=== PATIENT | female | born 1990 | race Caucasian/White ===

== ENCOUNTER 2017-02-10 09:53 | Emergency (ER) | payer SELFPAY ==
[2017-02-10 10:47] LABS: Hematocrit 35.3 % (30.3-42.9); Hemoglobin 11.5 gm/dl (10.1-14.3); Mean Corpuscular HGB Conc 33 % (30-34); Mean Corpuscular Hemoglobin 27 pg (28-32); Mean Corpuscular Volume 83 fl (79-97); Platelet Count 338 K/mm3 (140-440); Red Blood Count 4.27 M/mm3 (3.65-5.03); Red Cell Distribution Width 13.8 % (13.2-15.2); White Blood Count 5.4 K/mm3 (4.5-11.0)
[2017-02-10 11:15] LABS: Alanine Aminotransferase 8 units/L (7-56); Albumin 4.5 g/dL (3.9-5); Albumin/Globulin Ratio 1.4 %; Alkaline Phosphatase 67 units/L (35-129); Blood Urea Nitrogen 10 mg/dL (7-17); Calcium 9.7 mg/dL (8.4-10.2); Carbon Dioxide 21 mmol/L (22-30); Glucose 143 mg/dL (65-100); Lipase 15 units/L (13-60); Total Protein 7.8 g/dL (6.3-8.2)
[2017-02-10 11:16] LABS: Anion Gap 21 mmol/L; Chloride 101.2 mmol/L (98-107); Potassium 3.8 mmol/L (3.6-5.0); Sodium 139 mmol/L (137-145)
[2017-02-10 11:26] LABS: Blastocytes % (Manual) 0 %
[2017-02-10 11:32] LABS: Diff Status Complete; Platelet Estimate Consistent w Auto
[2017-02-10 17:06] VITALS: BP 118/69
[2017-02-10 17:25] LABS: Bilirubin,Urine NEG (Negative); Blood,Urine NEG (Negative); Ketones,Urine 80 mg/dL (Negative); Leukocyte Esterase,Urine NEG (Negative); Mucus,Urine 1+ /HPF; Nitrite,Urine NEG (Negative); Urobilinogen,Urine < 2.0 mg/dL (<2.0)
--- NOTE | 2017-02-10 17:33 | Emergency Department Report ---
ED Abdominal Pain HPI - General Chief Complaint: Abdominal Pain Stated Complaint: ABD PAIN/NAUSEA/VOMITING Time Seen by Provider: 02/10/17 17:30 Source: patient Mode of arrival: Ambulatory Limitations: No Limitations - History of Present Illness Initial Comments: Patient states that she has been having intermittent nocturnal abdominal pain for at least 3 months. She has never seen a physician for this. 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 She was recently found to have a positive skin test and INH treatment is anticipated. She had a negative chest x-ray she tells me. Last year she had a negative HIV test. She has not repeated this subsequently. At this time she has no abdominal pain. She states that she has made dietary modifications although she has not historically been lactose intolerant. She states that she stopped ingesting milk products and that seemed to help. She didn't mention anything about gluten. She has no history of any known chronic GI problem. He is not in any acute pain at this time. She states the pain is usually periumbilical to epigastric. She states that she used to take Goody powders quite frequently but now has discontinued that as well. -: month(s) Location: periumbilical Radiation: none Migration to: no migration Severity: moderate Quality: aching Consistency: now resolved Improves With: nothing Worsens With: nothing Associated Symptoms: denies other symptoms - Related Data Previous Rx's Medication Instructions Recorded Last Taken Type Lansoprazole [Prevacid] 15 mg PO BID #60 cap 02/10/17 Unknown Rx traMADol [Ultram] 50 mg PO Q6HR PRN #10 tablet 02/10/17 Unknown Rx Allergies Allergy/AdvReac Type Severity Reaction Status Date / Time No Known Allergies Allergy Unverified 02/10/17 09:55 ED Review of Systems ROS: Stated complaint: ABD PAIN/NAUSEA/VOMITING Other details as noted in HPI Constitutional: denies: chills, fever Eyes: denies: eye pain, eye discharge, vision change ENT: denies: ear pain, throat pain Respiratory: denies: cough, shortness of breath, wheezing Cardiovascular: denies: chest pain, palpitations Endocrine: no symptoms reported Gastrointestinal: as per HPI, abdominal pain. denies: nausea, vomiting, diarrhea (not recently ) Genitourinary: denies: urgency, dysuria, discharge Musculoskeletal: denies: back pain, joint swelling, arthralgia Skin: denies: rash, lesions Neurological: denies: headache, weakness, paresthesias Psychiatric: denies: anxiety, depression Hematological/Lymphatic: denies: easy bleeding, easy bruising ED Past Medical Hx - Past Medical History Previous Medical History?: No - Surgical History Past Surgical History?: No Additional Surgical History: - Social History Smoking Status: Never Smoker Substance Use Type: None - Medications Home Medications: Home Medications Medication Instructions Recorded Confirmed Last Taken Type Lansoprazole [Prevacid] 15 mg PO BID #60 cap 02/10/17 Unknown Rx traMADol [Ultram] 50 mg PO Q6HR PRN #10 tablet 02/10/17 Unknown Rx ED Physical Exam - General Limitations: No Limitations General appearance: alert, in no apparent distress - Head Head exam: Present: atraumatic, normocephalic - Eye Eye exam: Present: normal appearance. Absent: scleral icterus - ENT ENT exam: Present: normal exam, mucous membranes moist - Neck Neck exam: Present: normal inspection. Absent: tenderness, meningismus - Respiratory Respiratory exam: Present: normal lung sounds bilaterally. Absent: respiratory distress - Cardiovascular Cardiovascular Exam: Present: regular rate, normal rhythm. Absent: systolic murmur, diastolic murmur, rubs, gallop - GI/Abdominal GI/Abdominal exam: Present: soft, normal bowel sounds. Absent: distended, tenderness, guarding, rebound, rigid - Extremities Exam Extremities exam: Present: normal inspection - Back Exam Back exam: Present: normal inspection - Neurological Exam Neurological exam: Present: alert, oriented X3, CN II-XII intact. Absent: motor sensory deficit - Psychiatric Psychiatric exam: Present: normal affect, normal mood, other (a bit hyperverbal) - Skin Skin exam: Present: warm, dry, intact, normal color. Absent: rash ED Course Vital Signs 02/10/17 02/10/17 09:57 17:05 Temperature 97.6 F 98.0 F Pulse Rate 83 81 Respiratory 22 20 Rate Blood Pressure 121/74 Blood Pressure 118/69 [Right] O2 Sat by Pulse 100 100 Oximetry ED Medical Decision Making - Lab Data Result diagrams: 02/10/17 10:37 02/10/17 10:37 Laboratory Results - last 24 hr 02/10/17 02/10/17 02/10/17 10:37 10:37 17:09 WBC 5.4 RBC 4.27 Hgb 11.5 Hct 35.3 MCV 83 MCH 27 L MCHC 33 RDW 13.8 Plt Count 338 Add Manual Diff Complete Total Counted 100 Seg Neutrophils % Parts Salvager Band Neutrophils % 0 Lymphocytes % (Manual) 2.0 L Reactive Lymphs % (Man) 0 Monocytes % (Manual) 1.0 Metamyelocytes % 0 Myelocytes % 0 Promyelocytes % 0 Blast Cells % 0 Nucleated RBC % Not Reportable Seg Neutrophils # Man 5.2 Band Neutrophils # 0.0 Lymphocytes # (Manual) 0.1 L Abs React Lymphs (Man) 0.0 Monocytes # (Manual) 0.1 Eosinophils # (Manual) 0.0 Basophils # (Manual) 0.0 Metamyelocytes # 0.0 Myelocytes # 0.0 Promyelocytes # 0.0 Blast Cells # 0.0 WBC Morphology Not Reportable Hypersegmented Neuts Not Reportable Hyposegmented Neuts Not Reportable Hypogranular Neuts Not Reportable Smudge Cells Not Reportable Toxic Granulation Not Reportable Toxic Vacuolation Not Reportable Dohle Bodies Not Reportable Pelger-Huet Anomaly Not Reportable Lawrence Rods Not Reportable Platelet Estimate Consistent w auto Clumped Platelets Not Reportable Plt Clumps, EDTA Not Reportable Large Platelets Not Reportable Giant Platelets Not Reportable Platelet Satelliting Not Reportable Plt Morphology Comment Not Reportable RBC Morphology Not Reportable Dimorphic RBCs Not Reportable Polychromasia Not Reportable Hypochromasia Not Reportable Poikilocytosis Not Reportable Anisocytosis Not Reportable Microcytosis Not Reportable Macrocytosis Not Reportable Spherocytes Not Reportable Pappenheimer Bodies Not Reportable Sickle Cells Not Reportable Target Cells Not Reportable Tear Drop Cells Not Reportable Ovalocytes Not Reportable Helmet Cells Not Reportable [place] Bodies Not Reportable [place] Rings Not Reportable Lyle Cells Not Reportable Bite Cells Not Reportable Crenated Cell Not Reportable Elliptocytes Not Reportable Acanthocytes (Spur) Not Reportable Rouleaux Not Reportable Hemoglobin C Crystals Not Reportable Schistocytes Not Reportable Malaria parasites Not Reportable Rafi Bodies Not Reportable Hem Pathologist Commnt No Sodium 139 Potassium 3.8 Chloride 101.2 Carbon Dioxide 21 L Anion Gap 21 BUN 10 Creatinine 0.5 L Estimated GFR > 60 BUN/Creatinine Ratio 20.00 Glucose 143 H Calcium 9.7 Total Bilirubin 0.30 AST 13 ALT 8 Alkaline Phosphatase 67 Total Protein 7.8 Albumin 4.5 Albumin/Globulin Ratio 1.4 Lipase 15 Urine Color Yellow Urine Turbidity Clear Urine pH 7.0 Ur Specific [place] 1.025 Urine Protein 30 mg/dl Urine Glucose (UA) Neg Urine Ketones 80 Urine Blood Neg Urine Nitrite Neg Urine Bilirubin Neg Urine Urobilinogen < 2.0 Ur Leukocyte Esterase Neg Urine WBC (Auto) 3.0 Urine RBC (Auto) 3.0 U Epithel Cells (Auto) 3.0 Urine Mucus 1+ Urine HCG, Qual Negative - Medical Decision Making The patient is noted to be a bit lymphopenic. She'll be given a copy of her laboratory tests. She'll be referred to the [facility] for further diagnostic evaluation of this as well as follow-up. I will place her on lansoprazole. I've advised her to avoid gastric irritants. I will give her prescription of Ultram for when necessary use. Critical care attestation.: If time is entered above; I have spent that time in minutes in the direct care of this critically ill patient, excluding procedure time. ED Disposition Clinical Impression: Lymphopenia Abdominal pain Qualifiers: Abdominal location: upper abdomen, unspecified Qualified Code(s): R10.10 - Upper abdominal pain, unspecified Gastritis Qualifiers: Gastritis type: unspecified gastritis Chronicity: chronic Gastritis bleeding: without bleeding Qualified Code(s): K29.50 - Unspecified chronic gastritis without bleeding Gastritis Qualifiers: Gastritis type: unspecified gastritis Chronicity: chronic Gastritis bleeding: without bleeding Qualified Code(s): K29.50 - Unspecified chronic gastritis without bleeding Disposition: DISCHARGED TO HOME OR SELFCARE Is pt being admited?: No Does the pt Need Aspirin: No Condition: Stable Instructions: Abdominal Pain (ED), Gastritis (ED) Additional Instructions: Avoid stomach irritation such as aspirin and Goody powder or other nonsteroidal medication as well as alcohol. Rx as directed. Follow-up on your blood work is recommended. I've given you a copy. I've given you information concerning the [facility]. Return any acute change or problem. Prescriptions: Lansoprazole [Prevacid] 15 mg PO BID #60 cap traMADol [Ultram] 50 mg PO Q6HR PRN #10 tablet PRN Reason: Pain Referrals: PRIMARY CARE, [Primary Care Provider] - 3-5 Days [facility] [Provider Group] - 3-5 Days Time of Disposition: 18:06
== END 2017-02-10 18:17 | disposition home or self-care (01) ==
LOC: ED 09:53
DX: K29.50 Unspecified chronic gastritis without bleeding (principal); R10.33 Periumbilical pain; D72.810 Lymphocytopenia
CPT/HCPCS: 36415; 80053; 81001; 81025; 83690; 85007; 85025; 99283

== ENCOUNTER 2017-09-13 03:10 | Emergency (ER) | payer MEDICAID ==
[2017-09-13 04:03] LABS: Basophils % (Auto) 0.4 % (0.0-1.8); Eosinophils % (Auto) 0.6 % (0.0-4.3); Hemoglobin 11.2 gm/dl (10.1-14.3); Mean Corpuscular HGB Conc 33 % (30-34); Mean Corpuscular Hemoglobin 28 pg (28-32); Mean Corpuscular Volume 84 fl (79-97); Platelet Count 304 K/mm3 (140-440); Red Blood Count 4.04 M/mm3 (3.65-5.03); Red Cell Distribution Width 13.5 % (13.2-15.2); White Blood Count 5.7 K/mm3 (4.5-11.0)
[2017-09-13 04:20] LABS: Alanine Aminotransferase 58 units/L (7-56); Albumin/Globulin Ratio 1.3 %; Alkaline Phosphatase 58 units/L (35-129); Anion Gap 21 mmol/L; BUN/Creatinine Ratio 14; Blood Urea Nitrogen 7 mg/dL (7-17); Calcium 9.2 mg/dL (8.4-10.2); Carbon Dioxide 18 mmol/L (22-30); Chloride 99.9 mmol/L (98-107); Glucose 128 mg/dL (65-100); Lipase 41 units/L (13-60); Potassium 3.1 mmol/L (3.6-5.0); Sodium 136 mmol/L (137-145); Total Protein 7.2 g/dL (6.3-8.2)
[2017-09-13 04:21] LABS: INR 0.9 (0.87-1.13)
[2017-09-13 04:22] LABS: Partial Thromboplastin Time 27.9 Sec. (24.2-36.6)
[2017-09-13] MEDS ORDERED: ZOFRAN IV ONE (05:05)
[2017-09-13] MEDS ORDERED: NACL 0.9% 1000 ML 1,000 ML IV ONE ×3 (05:05→14:51)
[2017-09-13] MEDS ORDERED: DILAUDID IV ONE ×2 (05:05→14:51)
[2017-09-13] MEDS ORDERED: PROTONIX IV ONE (05:05)
--- NOTE | 2017-09-13 05:11 | Emergency Department Report ---
Blank Doc - Documentation Documentation: Pt screened. Labs reviewed. Patient's epigastric pain and complains of vomiting blood and blood in her stool that started after receiving an . Positive vaginal bleeding reported as well. Patient has significant right upper quadrant, epigastric, and left upper quadrant tenderness. Minimal suprapubic tenderness Labs reviewed: h/h stable, mild lft elevation, elevated hcg noted. mild hypokalemia (npo for now) Meds ordered include: Dilaudid, Zofran, Protonix, and normal saline Imaging studies ordered: abd us/transvag/pelvic US UA collection pending
--- NOTE | 2017-09-13 07:16 | Ultrasound Report ---
FINAL REPORT EXAM: US ABDOMEN COMPLETE HISTORY: epigstric pain, vomiting blood COMPARISONS: None FINDINGS: Grayscale and color Doppler ultrasound evaluation of the abdomen The liver is poorly visualized secondary to overlying bowel gas. No suggested hepatomegaly or intrahepatic biliary ductal dilatation. The common duct measures approximately 6 millimeters in caliber. The gallbladder is distended and contains at least 2 echogenic shadowing stones, the largest of which is in the neck and measures up to 1.8 cm in greatest dimension. Gallbladder wall measures up to 3-4 millimeters in thickness. No definite pericholecystic edema. The pancreas is not well seen secondary to overlying bowel gas. The spleen is sonographically unremarkable and measures up to 9.1 cm in greatest dimension. No abdominal ascites or free fluid in Gates's pouch. The right kidney measures up to 10.2 cm and the left kidney measures up to 10.9 cm cm in length. A hypoechoic partially shadowing focus is present in the region of the left renal pelvis measuring up to 1 cm. Twinkle artifact may be associated with this finding. No right-sided hydronephrosis. A right upper pole collecting system echogenic shadowing focus measures up to 9 millimeters. Imaged portions of the abdominal aorta and inferior vena cava are grossly unremarkable. IMPRESSION: Examination is compromised by overlying bowel gas. Cholelithiasis measuring up to 1.8 cm at the neck of the gallbladder with mild gallbladder wall is suggestive of cholecystitis. Left renal pelvis 1 centimeter stone and 9 millimeter right upper collecting system stone are suggested. No definite hydronephrosis. Consider CT follow-up.
--- NOTE | 2017-09-13 07:46 | Ultrasound Report ---
FINAL REPORT EXAM: US OB < = 14 WEEKS FETUS HISTORY: epigstric pain, vomiting blood, s/p yeste COMPARISONS: None. FINDINGS: Transabdominal grayscale and color Doppler ultrasound evaluation of the pelvis Anteverted uterus measures 10.7 x 7 x 7.9 cm. Heterogeneous endometrium is focally thickened at the fundus measuring up to 19 millimeters. There is fluid within the endometrium, as well as internal flow on color Doppler. No findings of intrauterine are detected. The ovaries are sonographically unremarkable and measure 3.3 x 2 x 2.3 cm on the right and 2.6 x 1.7 x 2.8 cm on the left. The ovaries are best demonstrated on transvaginal ultrasound. IMPRESSION: Heterogeneously thickened endometrium with internal flow on color Doppler may be due to inflammatory or infectious endometritis, given recent procedural history. There are no findings of intrauterine identified. Close interval clinical and sonographic follow-up are suggested.
--- NOTE | 2017-09-13 07:48 | Ultrasound Report ---
FINAL REPORT EXAM: US OB TRANSVAGINAL HISTORY: epigstric pain, vomiting blood, s/p yeste COMPARISONS: None. FINDINGS: Transvaginal grayscale and color Doppler ultrasound evaluation of the pelvis Anteverted uterus measures 10.7 x 7 x 7.9 cm. Heterogeneous endometrium is focally thickened at the fundus measuring up to 19 millimeters. There is fluid within the endometrium, as well as internal flow on color Doppler. No findings of intrauterine are detected. The ovaries are sonographically unremarkable and measure 3.3 x 2 x 2.3 cm on the right and 2.6 x 1.7 x 2.8 IMPRESSION: Heterogeneously thickened endometrium with internal flow on color Doppler may be due to inflammatory or infectious endometritis, given recent procedural history. There are no findings of intrauterine identified. Close interval clinical and sonographic follow-up are suggested.
[2017-09-13] MEDS: KCL 10MEQ/100ML 10 MEQ/100 ML BAG IV SCH ×2 (08:00→11:03)
[2017-09-13] MEDS ORDERED: MORPHINE IV ONE (08:43)
[2017-09-13 09:40] LABS: Bacteria,Urine 1+ /HPF (Negative); Bilirubin,Urine NEG (Negative); Blood,Urine LG (Negative); Ketones,Urine 80 mg/dL (Negative); Leukocyte Esterase,Urine SM (Negative); Mucus,Urine FEW /HPF; Nitrite,Urine NEG (Negative); Protein,Urine <15 mg/dL mg/dL (Negative); Urobilinogen,Urine < 2.0 mg/dL (<2.0)
--- NOTE | 2017-09-13 12:11 | Cat Scan Report ---
CT ABDOMEN PELVIS WITH CONTRAST: HISTORY: Abdominal pain. COMPARISON: none. TECHNIQUE: Helical CT in 1.25mm intervals following IV contrast. Sagittal and coronal reconstructions. FINDINGS: Lung bases: Normal. Liver: Normal. Biliary system: Normal. Pancreas: Normal. Spleen: Normal. Kidneys/ureters/bladder: Normal. Adrenal glands: Normal. Aorta: Normal. Intestines: Normal. Appendix: Not confidently identified, correlate with surgical history. Pelvic viscera: Normal. Ascites: None. Adenopathy: None. Musculoskeletal: Normal. IMPRESSION: Unremarkable CT scan of the abdomen and pelvis with contrast.
[2017-09-13 12:48] VITALS: BP 129/74
--- NOTE | 2017-09-13 13:29 | Emergency Department Report ---
ED Abdominal Pain HPI - General Chief Complaint: Abdominal Pain Stated Complaint: ABD PAIN Time Seen by Provider: 09/13/17 07:01 Source: patient, EMS Mode of arrival: Stretcher Limitations: No Limitations - History of Present Illness Initial Comments: 27 YO FEMALE S/P ELECTIVE YESTERDAY HER WITH ABDOMINAL PAIN. THIS MORNING AT 0130 SHE BEGAN VOMITING AND HAVING SEVERE EPIGASTRIC ABDOMINAL PAIN. HER VAGINAL BLEEDING WAS HEAVY BUT IS IS NOW SLOWED TO A TRICKLE. HER WAS PERFORMED AT THE [facility] . SHE WAS 10 WEEKS . SHE IS A A2. SHE IS UNABLE TO STOP VOMITING AND BELLY ANNA IS 10/10 MD Complaint: abdominal pain -: Sudden, This morning (EARLY 0130) Location: epigastric, suprapubic Migration to: no migration Severity scale (0 -10): 10 Quality: sharp ( IN EPIGASTRIC AND CRAMPY,ACHING SUPRAPUBIC) Improves With: nothing Worsens With: movement Context: recent surgery/procedure (ELECTIVE ) - Related Data LMP (females 10-50): other (8WEEKS AGO) Home Medications Medication Instructions Recorded Confirmed Last Taken No Known Home Medications [No 09/13/17 09/13/17 Unknown Reported Home Medications] Allergies Allergy/AdvReac Type Severity Reaction Status Date / Time NSAIDS (Non-Steroidal Allergy Vomiting Verified 09/13/17 03:36 Anti-Inflamma ED Review of Systems ROS: Stated complaint: ABD PAIN Other details as noted in HPI Constitutional: denies: chills, fever Eyes: denies: eye pain, eye discharge, vision change ENT: denies: ear pain, throat pain Respiratory: denies: cough, shortness of breath, wheezing Cardiovascular: denies: chest pain, palpitations Endocrine: no symptoms reported Gastrointestinal: nausea, vomiting. denies: diarrhea Genitourinary: denies: urgency, dysuria, discharge Musculoskeletal: denies: back pain, joint swelling, arthralgia Skin: denies: rash, lesions Neurological: denies: headache, weakness, paresthesias Psychiatric: denies: anxiety, depression Hematological/Lymphatic: denies: easy bleeding, easy bruising ED Past Medical Hx - Past Medical History Additional medical history: gastritis - Surgical History Past Surgical History?: Yes Additional Surgical History: x2 (2015, 09/12/17) - Social History Smoking Status: Never Smoker Substance Use Type: Marijuana - Medications Home Medications: Home Medications Medication Instructions Recorded Confirmed Last Taken Type No Known Home Medications [No 09/13/17 09/13/17 Unknown History Reported Home Medications] ED Physical Exam - General Limitations: No Limitations General appearance: alert, in distress - Head Head exam: Present: atraumatic - Eye Eye exam: Present: normal appearance - ENT ENT exam: Present: mucous membranes moist - Neck Neck exam: Present: normal inspection - Respiratory Respiratory exam: Present: normal lung sounds bilaterally. Absent: respiratory distress - Cardiovascular Cardiovascular Exam: Present: regular rate, normal rhythm. Absent: systolic murmur, diastolic murmur, rubs, gallop - GI/Abdominal GI/Abdominal exam: Present: soft, tenderness (EPIGASTRIUM), guarding, normal bowel sounds. Absent: rebound - Rectal Rectal exam: Present: deferred - Extremities Exam Extremities exam: Present: normal inspection - Back Exam Back exam: Present: normal inspection - Neurological Exam Neurological exam: Present: alert, oriented X3 - Psychiatric Psychiatric exam: Present: normal affect, normal mood - Skin Skin exam: Present: warm, dry, intact, normal color. Absent: rash ED Course Vital Signs 09/13/17 09/13/17 09/13/17 03:26 03:27 03:29 Temperature 97.5 F L Pulse Rate 81 78 Respiratory 18 20 16 Rate Blood Pressure 116/78 116/78 Blood Pressure [Left] O2 Sat by Pulse 100 100 100 Oximetry 09/13/17 09/13/17 09/13/17 03:30 03:31 03:33 Temperature Pulse Rate 77 78 Respiratory 12 12 23 Rate Blood Pressure 121/78 121/78 121/78 Blood Pressure [Left] O2 Sat by Pulse 100 100 Oximetry 09/13/17 09/13/17 09/13/17 03:35 03:37 03:38 Temperature Pulse Rate 80 75 Respiratory 25 H 24 24 Rate Blood Pressure 121/78 121/78 Blood Pressure [Left] O2 Sat by Pulse 100 100 100 Oximetry 09/13/17 09/13/17 09/13/17 03:39 03:41 03:43 Temperature Pulse Rate 76 73 73 Respiratory 18 20 12 Rate Blood Pressure 121/78 121/78 121/78 Blood Pressure [Left] O2 Sat by Pulse 100 100 100 Oximetry 09/13/17 09/13/17 09/13/17 03:45 03:47 03:49 Temperature Pulse Rate 77 73 81 Respiratory 14 14 17 Rate Blood Pressure 121/78 121/78 121/78 Blood Pressure [Left] O2 Sat by Pulse 100 100 99 Oximetry 09/13/17 09/13/17 09/13/17 03:51 03:53 03:55 Temperature Pulse Rate 74 82 83 Respiratory 23 18 14 Rate Blood Pressure 121/78 121/78 121/78 Blood Pressure [Left] O2 Sat by Pulse 100 100 98 Oximetry 09/13/17 09/13/17 09/13/17 03:57 03:59 04:00 Temperature Pulse Rate 78 76 78 Respiratory 18 18 14 Rate Blood Pressure 121/78 121/78 125/70 Blood Pressure [Left] O2 Sat by Pulse 98 98 100 Oximetry 09/13/17 09/13/17 09/13/17 04:01 04:03 04:05 Temperature Pulse Rate 78 75 77 Respiratory 14 19 20 Rate Blood Pressure 125/70 125/70 125/70 Blood Pressure [Left] O2 Sat by Pulse 100 100 99 Oximetry 09/13/17 09/13/17 09/13/17 04:07 04:09 04:11 Temperature Pulse Rate 73 73 76 Respiratory 19 16 16 Rate Blood Pressure 125/70 125/70 125/70 Blood Pressure [Left] O2 Sat by Pulse 100 100 100 Oximetry 09/13/17 09/13/17 09/13/17 04:13 04:14 04:15 Temperature Pulse Rate 79 78 Respiratory 15 21 Rate Blood Pressure 125/70 125/70 125/70 Blood Pressure [Left] O2 Sat by Pulse 100 100 98 Oximetry 09/13/17 09/13/17 09/13/17 04:18 04:21 04:22 Temperature Pulse Rate Respiratory Rate Blood Pressure 125/70 125/70 125/70 Blood Pressure [Left] O2 Sat by Pulse 87 91 81 L Oximetry 09/13/17 09/13/17 09/13/17 04:26 04:27 04:36 Temperature Pulse Rate Respiratory Rate Blood Pressure 125/70 125/70 125/70 Blood Pressure [Left] O2 Sat by Pulse 94 92 98 Oximetry 09/13/17 09/13/17 09/13/17 04:38 04:42 04:44 Temperature Pulse Rate Respiratory Rate Blood Pressure 125/70 125/70 125/70 Blood Pressure [Left] O2 Sat by Pulse 83 L 93 99 Oximetry 09/13/17 09/13/17 09/13/17 04:47 04:48 04:50 Temperature Pulse Rate Respiratory Rate Blood Pressure 125/70 125/70 125/70 Blood Pressure [Left] O2 Sat by Pulse 93 99 Oximetry 09/13/17 09/13/17 09/13/17 04:51 05:03 05:19 Temperature Pulse Rate Respiratory Rate Blood Pressure 125/70 125/70 125/70 Blood Pressure [Left] O2 Sat by Pulse 89 89 92 Oximetry 09/13/17 09/13/17 09/13/17 05:25 05:27 05:58 Temperature Pulse Rate Respiratory 20 Rate Blood Pressure 125/70 125/70 Blood Pressure [Left] O2 Sat by Pulse Oximetry 09/13/17 09/13/17 09/13/17 06:13 06:14 06:16 Temperature Pulse Rate Respiratory Rate Blood Pressure 125/70 125/70 125/70 Blood Pressure [Left] O2 Sat by Pulse 100 100 100 Oximetry 09/13/17 09/13/17 09/13/17 06:17 06:21 06:22 Temperature Pulse Rate Respiratory Rate Blood Pressure 125/70 125/70 125/70 Blood Pressure [Left] O2 Sat by Pulse 100 100 100 Oximetry 09/13/17 09/13/17 06:23 12:47 Temperature Pulse Rate 85 Respiratory 18 Rate Blood Pressure 125/70 Blood Pressure 129/74 [Left] O2 Sat by Pulse 100 99 Oximetry ED Medical Decision Making - Lab Data Result diagrams: 09/13/17 03:42 09/13/17 03:42 - Radiology Data Radiology results: report reviewed (CT ABD/PEVIS:NEGATIVE US; THICKENED ENDOMETRIUM) - Medical Decision Making CT ABDOMEN/PELVIS; NEGATIVE US: THICKENED ENDOMETRIUM COULD BE ENDOMETRITIS, NO RETAINED PRODUCTS OF CONCEPTION Critical care attestation.: If time is entered above; I have spent that time in minutes in the direct care of this critically ill patient, excluding procedure time. ED Disposition Clinical Impression: Hyperkalemia Abdominal pain Qualifiers: Abdominal location: epigastric Qualified Code(s): R10.13 - Epigastric pain Nausea & vomiting Qualifiers: Vomiting type: unspecified Vomiting Intractability: unspecified Qualified Code( s): R11.2 - Nausea with vomiting, unspecified DKA, type 2 Qualifiers: Diabetes mellitus complication detail: without coma Diabetes mellitus technician terminal and repeater insulin use: without technician terminal and repeater use Qualified Code(s): E11.10 - Type 2 diabetes mellitus with ketoacidosis without coma Disposition: DC-01 TO HOME OR SELFCARE Is pt being admited?: No Does the pt Need Aspirin: No Condition: Stable Instructions: Abdominal Pain (ED), Diabetic Ketoacidosis (ED) Referrals: PRIMARY CARE,MD [Primary Care Provider] - 3-5 Days Time of Disposition: 13:40 (CASE REVIEWED WITH DR TAY AND HE DILMA ADMIT HER TO THE [facility])
[2017-09-13 14:27] LABS: Anion Gap 21 mmol/L; BUN/Creatinine Ratio 8; Blood Urea Nitrogen 3 mg/dL (7-17); Calcium 8.7 mg/dL (8.4-10.2); Carbon Dioxide 17 mmol/L (22-30); Chloride 98.3 mmol/L (98-107); Glucose 122 mg/dL (65-100); Potassium 3.9 mmol/L (3.6-5.0); Sodium 132 mmol/L (137-145)
[2017-09-13] MEDS ORDERED: SODIUM BICARBONATE IV ONE ×2 (17:00→20:06)
[2017-09-14] MEDS ORDERED: MOTRIN PO ONE (00:10)
[2017-09-14] MEDS ORDERED: MOTRIN ONE (00:19)
== END 2017-09-14 01:00 | disposition home or self-care (01) ==
LOC: ED 03:10
DX: O24.911 Unspecified diabetes mellitus in pregnancy, first trimester (principal); O99.281 Endocrine, nutritional and metabolic diseases complicating pregnancy, first trimester; Z3A.08 8 weeks gestation of pregnancy; E87.5 Hyperkalemia; R10.13 Epigastric pain; E11.10 Type 2 diabetes mellitus with ketoacidosis without coma; F12.10 Cannabis abuse, uncomplicated
CPT/HCPCS: 36415; 74177; 76700; 76801; 76817; 80048; 80053; 81001; 82962; 83690; 84702; 85025; 85610; 85730; 86850; 86900; 86901; 87210; 87591; 96361; 96365; 96375; 96376; 99284; C9113; J1170; J2270; J2405; J3480; J7030; Q9967